=== PATIENT | female | born 1990 | race Two or more races ===

== ENCOUNTER 2024-08-13 06:13 | Inpatient (IN) ==
[2024-08-13] MEDS ORDERED: LIDOCAINE 1% LOCAL 20 ML VIAL INFIL PRN (06:36)
[2024-08-13] MEDS ORDERED: CALCIUM CARBONATE 500 MG CHEWABLE TAB PO PRN (06:36)
[2024-08-13] MEDS ORDERED: ACETAMINOPHEN 325 MG TAB PO PRN (06:36)
--- NOTE | 2024-08-13 06:43 | History & Physical Report ---
Date of Service August 13, 2024 Assessment & Plan (1) Elderly multigravida: Plan: multip in active labor GBS-negative requesting epidural analgesia anticipate vaginal History of Present Illness Primary Care Provider: NO PCP Patient is a 34 yo EDC 08/15/24 who presents at 39 5/7 weeks in active labor. membranes intact. no bloody show. contractions are every 2-3 minutes now. GBS-negative Allergies Allergy/AdvReac Type Severity Reaction Status Date / Time acetaminophen [From Percocet] Allergy Intermediate Hives Verified 08/10/24 10:43 oxycodone [From Percocet] Allergy Intermediate Hives Verified 08/10/24 10:43 Home Medications Medication Instructions Recorded Confirmed Type albuterol sulfate inhalation PRN asthma 03/23/24 08/10/24 History mv-mn [id number] PO 03/23/24 08/10/24 History [ Gummies (DHA-EPA)] Patient History Medical History (Updated 08/13/24 @ 06:42 by Lia Lyles MD, FACOG) Asthma History of chicken pox Surgical History S/P medial meniscal repair S/P wisdom tooth extraction Family History Mother Breast cancer Hypertension Father Heart disease Denies family history of Ovarian cancer Colorectal cancer Social History Smoking Status: Never smoker Do You Dip or Chew Tobacco: No; marital status: marital status details: Nikolai Mcdonough (31) [phone] Current Living Situation: Spouse and Family Current Living Situation Comment: lives with spouse, daughter, dog current occupational status: employed current occupation: [employer] Physical Exam Constitutional: WD/WN, vitals as above Psychiatric: A+Ox3, euthymic affect Genitourinary: OB Exam Abdomen: + vertex, + estimated weight (7-8 pounds) and + regular contractions (Q2-3 minutes) Manual OB Exam: + cervical dilation 7 cm, + cervical effacement 100% and + station 0 OB Exam Monitor Tracing: + external FHT monitor used, + external uterine monitor used, + category I and + normal FHT variability Results & Data Vital Signs (Past 12 Hours) Vital Signs Pulse BP 08/13/24 06:24 85 126/75 Code Status & VTE Plan VTE Prophylaxis Plan VTE Prophylaxis will be ordered: No Coding Level of Care Code 42135 INT INP/OBS CARE 40MIN Diagnoses Multigravida of advanced maternal age in third trimester O09.523 Trimester: third trimester (1) Elderly multigravida Trimester: third trimester Qualified Code(s): O09.523 - Supervision of elderly multigravida, third trimester
[2024-08-13] MEDS: LACTATED RINGER'S 1,000 ML IV PRN (06:53)
[2024-08-13 06:58] LABS: Hematocrit (blood only) 32.8 % (37.0-47.0); Hemoglobin 10.9 g/dl (12.0-16.0); Mean Corpuscular Hemoglobin 30.3 pg (25.0-34.0); Mean Corpuscular Hgb Conc 33.2 g/dL (32.0-36.0); Mean Corpuscular Volume 91.1 fL (80.0-100.0); Mean Platelet Volume 10.3 fL (9.4-12.4); Platelet Count 277 K/uL (130-400); RDW Coefficient of Variation 13.8 % (11.5-14.5); RDW Standard Deviation 45.2 fL (36.4-46.3); White Blood Count 11.77 K/ul (4.8-10.8)
--- NOTE | 2024-08-13 07:08 | Anesthesiology Consultation ---
Date of Service August 13, 2024 Assessment & Plan ASA ASA2 Proposed Anesthesia Anesthesia Type: Labor Epidural Risk / Benefits Reviewed With: PT / POA / Parent / Guardian, Accepts Plan and Informed Consent Obtained History Height/Weight Height: 5 ft 8 in Weight: 94.483 kg Allergies Allergy/AdvReac Type Severity Reaction Status Date / Time acetaminophen [From Percocet] Allergy Intermediate Hives Verified 08/10/24 10:43 oxycodone [From Percocet] Allergy Intermediate Hives Verified 08/10/24 10:43 Medications Home Medications Medication Instructions Recorded Confirmed Last Taken albuterol sulfate inhalation PRN asthma 03/23/24 08/10/24 Unknown mv-mn [id number] PO 03/23/24 08/10/24 Unknown [ Gummies (DHA-EPA)] Active Medications Generic Name Dose Route Start Last Admin Trade Name Freq PRN Reason Stop Dose Admin Lactated Ringer's 1,000 mls @ 125 mls/hr 08/13/24 06:36 08/13/24 06:53 Lr IV 08/15/24 06:35 999 mls/hr .Q8H PRN Administration L&D Protocol Protocol Past Medical History Medical History Asthma History of chicken pox Exercise / Class Metabolic Activity II 4-5 Yardwork/Stairs/Walk up hill Past Family History Family History Mother Breast cancer Hypertension Father Heart disease Denies family history of Ovarian cancer Colorectal cancer Past Surgical History Surgical History S/P medial meniscal repair S/P wisdom tooth extraction Past Anesthesia History No Hx of Anesthesia Complications and No Family Hx of Anesthesia Complications History of PONV No Hx of PONV and No Hx of Motion Sickness Social History Smoking Status: Former smoker Do You Dip or Chew Tobacco: No Hx Alcohol Use: No Hx Substance Use: No Review of Systems denies fever/cough/ colds/ chest pain/ SOB/ KYM denies KYM Physical Exam Vital Signs Last Vital Signs Temp 36.8 C 08/13/24 06:24 Pulse 85 08/13/24 06:24 Resp 20 08/13/24 06:24 BP 126/75 08/13/24 06:24 ENMT Mouth: no TMJ abnormality and no dentition abnormality Thyromental Distance: > or= 3.5 Finger Breadths Mallampati Class: II Neck neck extension not limited Respiratory normal respiratory effort; no respiratory distress Auscultation: lungs clear to auscultation bilaterally Cardiovascular Rate/Rhythm: regular rate and regular rhythm Neurologic moves all extremities Psychiatric Orientation: alert and oriented x 3 Testing Laboratory Results 08/13/24 06:46
[2024-08-13] MEDS ORDERED: ONDANSETRON INJ 2 MG/ML 2 ML VIAL IV PRN (07:09)
[2024-08-13] MEDS ORDERED: fentaNYL citrate PF 100 MCG/2 ML VIAL EPI PRN (07:09)
[2024-08-13] MEDS ORDERED: NALOXONE HCL 0.4 MG/1 ML VIAL/CARP IV PRN (07:09)
[2024-08-13] MEDS ORDERED: BUPIVACAINE 0.25% PF 30 ML VIAL EPI PRN (07:09)
[2024-08-13] MEDS ORDERED: ROPIVACAINE 0.5% PF 5 MG/ML 20 ML VIAL EPI PRN (07:09)
[2024-08-13] MEDS ORDERED: ePHEDrine sulfate 50 MG/ML AMP IV PRN (07:09)
[2024-08-13] MEDS ORDERED: LIDOCAINE 2% MPF LOCAL 5 ML VIAL EPI PRN (07:09)
[2024-08-13] MEDS ORDERED: NALBUPHINE HCL INJ 10 MG/ML AMP IV PRN (07:09)
[2024-08-13] MEDS ORDERED: SODIUM CHLORIDE 0.9% PF INJ 10 ML VIAL EPI PRN (07:09)
[2024-08-13] MEDS ORDERED: NALOXONE HCL 1 MG in SODIUM CHLORIDE 0.9% 1,000 ML IV PRN (07:09)
[2024-08-13] MEDS ORDERED: diphenhydrAMINE 50 MG/ML VIAL IV PRN (07:09)
[2024-08-13] MEDS: LIDOCAINE 2%/EPINEPHRINE 1:200,000 20 ML PF EPI STA (07:34)
[2024-08-13] MEDS: BUPIVACAINE 0.25% PF 30 ML VIAL EPI STA (07:34)
[2024-08-13] MEDS: fentaNYL citrate PF 100 MCG/2 ML VIAL EPI STA (07:34)
[2024-08-13] MEDS: fentANYL 2 MCG/ML BUPIVacaine 0.125%-NSS 100ML BAG EPI PRN (07:34)
[2024-08-13] MEDS ORDERED: OXYTOCIN 30 UNITS/NSS 30 UNITS/500 ML BAG IV PRN ×2 (09:39→11:58)
--- NOTE | 2024-08-13 09:39 | Labor Progress Brief Note ---
Date of Service August 13, 2024 Subjective comfortable w/ epidural Assessment & Plan (1) Elderly multigravida: Plan: 34 yo at 39 5/7 wga presents in labor VSS Fetus cat 1 Labor - arom for light mec, sve unchanged. Discussed pit as well and pt agreeable GBS neg epidural in place Trimester: third trimester Qualified Code(s): O09.523 - Supervision of elderly multigravida, third trimester Admission and Anticipated Discharge Date Admission Date: August 13, 2024 Physical Exam Genitourinary: Manual OB Exam: + cervical dilation (7-8), + cervical ef facement 80%, + station 0 and + amniotic fluid (arom light mec) OB Exam Monitor Tracing: + external FHT monitor used, + external uterine monitor used (q3) and + category I (145/mod/+accel/intermit early decel) Results & Data Vital Signs (Past 12 Hours) Vital Signs Temp Pulse Resp BP Pulse Ox 08/13/24 09:34 98 H 92 08/13/24 09:32 89 100 08/13/24 09:27 93 H 100 08/13/24 09:24 88 109/66 08/13/24 09:22 87 100 08/13/24 09:19 95 H 92 08/13/24 09:17 92 H 100 08/13/24 09:12 89 100 08/13/24 09:09 92 H 124/74 08/13/24 09:07 95 H 100 08/13/24 09:02 89 100 08/13/24 08:57 88 100 08/13/24 08:55 93 H 121/73 08/13/24 08:52 94 H 100 08/13/24 08:47 91 H 100 08/13/24 08:42 88 100 08/13/24 08:38 89 93 08/13/24 08:37 90 100 08/13/24 08:36 89 117/71 08/13/24 08:32 88 100 08/13/24 08:30 89 123/63 08/13/24 08:27 81 100 08/13/24 08:25 93 H 119/66 08/13/24 08:22 87 100 08/13/24 08:20 88 111/66 08/13/24 08:17 90 100 08/13/24 08:15 86 110/68 08/13/24 08:12 89 100 08/13/24 08:11 82 113/68 08/13/24 08:07 92 H 100 08/13/24 08:06 88 115/67 08/13/24 08:02 92 H 100 08/13/24 08:01 93 H 106/70 08/13/24 07:58 94 H 90 08/13/24 07:57 90 100 08/13/24 07:56 88 101/71 08/13/24 07:52 85 100 08/13/24 07:51 96 H 122/59 L 08/13/24 07:47 84 100 08/13/24 07:46 88 116/64 08/13/24 07:42 100 H 100 08/13/24 07:39 100 H 126/72 08/13/24 07:37 100 08/13/24 07:37 94 H 08/13/24 07:37 92 H 123/71 08/13/24 07:35 88 126/71 08/13/24 07:34 81 123/74 08/13/24 07:32 93 H 98 08/13/24 07:27 87 99 08/13/24 07:22 86 100 08/13/24 07:17 85 99 08/13/24 07:12 82 100 08/13/24 07:07 85 100 08/13/24 06:24 85 126/75 08/13/24 06:24 98.2 F 85 20 126/75 Coding Level of Care Code None Diagnoses Multigravida of advanced maternal age in third trimester O09.523 Trimester: third trimester
[2024-08-13] MEDS: BUPIVACAINE 0.25% PF 30 ML VIAL ONE (09:44)
[2024-08-13] MEDS: fentANYL 2 MCG/ML BUPIVacaine 0.125%-NSS 100ML BAG ONE (09:44)
[2024-08-13] MEDS: LIDOCAINE 2%/EPINEPHRINE 1:200,000 20 ML PF ONE (09:44)
[2024-08-13] MEDS: fentaNYL citrate PF 100 MCG/2 ML VIAL ONE (09:44)
[2024-08-13] MEDS: SODIUM CHLORIDE 0.9% PF INJ 10 ML VIAL EPI STA (09:45)
[2024-08-13] MEDS: OXYTOCIN 30 UNITS/NSS 30 UNITS/500 ML BAG IV PRN (11:23)
--- NOTE | 2024-08-13 11:36 | Delivery Summary ---
Vaginal Delivery Summary Date of Service August 13, 2024 Vaginal Delivery Summary [facility] PREOPERATIVE DIAGNOSIS: 1. Single intrauterine at 39 5/7 wga 2. Labor 3. AMA POSTOPERATIVE DIAGNOSIS: 1. Single intrauterine at 39 5/7 wga 2. Labor 3. AMA 4. Delivered PROCEDURE: 1. Normal spontaneous vaginal delivery. SURGEON: Awa Moe MD ANESTHESIA: Epidural. QUANTITATIVE BLOOD LOSS: 175 mL FLUIDS: Continuous LR. URINE OUTPUT: None. COMPLICATIONS: None. CONDITION: Stable. INDICATIONS: 34 yo at 39 5/7 wga presented this morning in labor. She received an epidural for pain control. She underwent arom for light meconium and progressed to complete and desired to push FINDINGS: A viable male infant, weight pending with Apgars of 8 and 9 at 1 and 5 minutes respectively. SPECIMEN: Cord blood OPERATIVE REPORT: The patient progressed to 10 cm, 100% effaced and +2 station, pushed over intact perineum with anesthesia to deliver a viable male , weight and Apgars as above. Head of delivered in ROBINSON position. Nuchal cord x 2 was reduced. Body and shoulders were delivered without difficulty. was delivered to maternal abdomen and nursing staff. Delayed cord clamping was performed for 60 seconds. Cord was clamped and cut. Cord blood was obtained. Placenta delivered spontaneously intact with 3-vessel cord. IV oxytocin and fundal massage were given for excellent hemostasis. Vagina, cervix, perineum, and placenta were inspected. Hemostatic right vaginal introital abrasion was noted and did not need repaired. Sponge and needle counts correct x2. No sponges were left behind. Mother and stable in immediate postpart um period. [facility] Vaginal Delivery Charge Vaginal Delivery Codes: 99192 global code for the antepartum, delivery, and post- Delivery Type Details: [facility]
[2024-08-13] MEDS ORDERED: HYDROCORTISONE ACETATE 25 MG SUPP PR PRN (11:58)
[2024-08-13] MEDS ORDERED: bisacodyL 10 MG SUPP PR PRN (11:58)
[2024-08-13] MEDS ORDERED: DIPHTHER/TETAN/PERTUS Vaccine (Tdap, Adol/Adult) 0.5mL IM ONE (11:58)
--- NOTE | 2024-08-13 13:24 | Anesthesia Procedure Note ---
Date of Service August 13, 2024 Anesthesia Post Epidural Note Vital Signs Vital Signs: Temp Pulse Resp BP Pulse Ox 36.8 C 93 H 20 115/69 100 08/13/24 10:00 08/13/24 13:14 08/13/24 13:00 08/13/24 13:14 08/13/24 11:22 Pain Intensity Right Hip: Pain Intensity: 3 Notes Mental Status: alert / awake / arousable and participated in evaluation Nausea / Vomiting: adequately controlled Pain: adequately controlled Airway Patency, RR, SpO2: stable & adequate BP & HR: stable & adequate Hydration State: stable & adequate Neuraxial Anesthesia: was administered and sensory block resolved Anesthetic Complications: no major complications apparent and Pt Satisfied with anesthetic care Epidural: Removed without complications and With tip intact
[2024-08-13] MEDS: ePHEDrine sulfate 50 MG/ML AMP ONE (14:47)
[2024-08-13] MEDS: SODIUM CHLORIDE 0.9% PF INJ 10 ML VIAL ONE (14:47)
[2024-08-13] MEDS: IBUPROFEN 600 MG TAB PO PRN (19:40)
[2024-08-13] MEDS: DOCUSATE SODIUM 100 MG CAP PO SCH (20:05)
[2024-08-13] MEDS: BENZOCAINE 20% SPRY 85 APPLN/85 GM CAN EXT PRN (20:05)
--- NOTE | 2024-08-14 05:50 | Obstetrical Progress Note ---
Date of Service August 14, 2024 Assessment & Plan (1) Elderly multigravida: (2) Encounter for care and examination after delivery: Plan Pt is 34 yo post- day 1 s/p at 39w5d. complicated by AMA.Pt c/o SOB and right leg pain, however, normal breaths sounds are noted bilaterally. No right LE edema is noted, leg discoloration and negative Shyla's sign. - Encourage ambulation - Encourage breast feeding - Pain control with tylenol and ibuprofen - Anticipate DC today Admission and Anticipated Discharge Date Admission Date: August 13, 2024 Supervising Physician Co-Signing Physician Notes Resident Physician Supervision Note: I was present with Dr. Coats during the history and exam. I discussed the case with the resident and agree with the findings and plan as documented in the note. Any exceptions or clarifications are listed here: stable doing well. sob is not persistent and pt notes right calf pain emanates from her buttocks area with h/o sciatica. not persistent either. eating, voiding, breast feeding, ambulating without issue. abd soft ff 2 down nt, ext nt calves. equal in size, no cords, tenderness or erythema bilaterally. ppd#1 s/p , desires dc today, instructions reviewed. breast/rhpos/ri. f/u 6 wk pp Documented By: Adore Fairbanks MD, FACOG Subjective Pt is 34 yo post- day 1 s/p at 39w5d Ambulation:In room Voiding:voiding normally Passing gas: yes BM: no Diet tolerance:regular diet Lochia:bloody, no clots Feeding type: breast Current pain level:0-3/10 improved with ibuprofen Resting comfortably this morning in NAD. Noting Right leg cramping and SOB with ambulation. Denies BILL, CP, N/V/D, LE pain/swelling. Review of Systems Review of Systems: As per HPI Physical Exam Constitutional: WD/WN, vitals as above Respiratory: normal respiratory effort, lungs clear to auscultation Cardiovascular: RRR, no murmur, no edema Gastrointestinal (Abdomen): normal bowel sounds, soft, nontender, no hepatosplenomegaly Uterine fundus firm and at 2cm below level of umbilicus Neurologic: PERRL, EOMI, accommodation nl, no face palsy, no dysarthria Moving all 4 extremities on command Psychiatric: A+Ox3, euthymic affect Results & Data Vital Signs (Past 12 Hours) Vital Signs Temp Pulse Resp BP Pulse Ox O2 Del Method 08/14/24 04:45 36.8 C 80 16 108/63 98 Room Air 08/13/24 23:50 36.7 C 72 16 121/74 97 Room Air 08/13/24 19:35 37.1 C 91 H 16 118/72 98 Room Air Resident Activity Tracking Resident Involvement: Resident Care Provided Care Provided: Adult Hospital Medicine (1) Elderly multigravida Trimester: third trimester Qualified Code(s): O09.523 - Supervision of elderly multigravida, third trimester
[2024-08-14 07:12] VITALS: RESP 18
[2024-08-14] MEDS: ACETAMINOPHEN 325 MG TAB PO PRN (08:00)
[2024-08-14] MEDS: PRENATAL VITAMIN 1 TAB PO SCH (08:00)
[2024-08-14 11:35] VITALS: BP 117/72; PULSE 76; TEMP 97.5; O2SAT 98
[2024-08-14] MEDS ORDERED: bisacodyL 5 MG TABEC PO SCH (20:00)
== END 2024-08-14 14:08 | disposition home or self-care (01) | DRG 807 ==
LOC: OPB 06:13 → 4S1 06:19 → 4E2 14:37